=== PATIENT | female | born 1945 | race Caucasian/White ===

== ENCOUNTER → 2017-03-25 | Outpatient (CLI) | payer MEDICARE, OTHER ==
[~2017-03-25] MED LIST: ACET325T9 PO; ALPR1TAB2 PO; ASA/1TAB PO; CALC-159 PO; CARI350T PO; DIPH25CA58 PO; FLUO40CA9 PO; FURO-68 PO; LISI40TA PO; METH20TA PO; MULT-245 PO; OMEG-33 PO; POT1TABL2 PO; PSYL0.525 PO; SIMV40TA PO; VITA400C11 PO
--- NOTE | 2017-03-25 11:28 | KCIC ---
EXAM: Right shoulder, 3 views; chest, 2 views; right knee, 3 views. HISTORY: Pain status post fall. COMPARISON: None. FINDINGS: Right shoulder: Internal and external rotation and transscapular views of the right shoulder obtained. There is no fracture, dislocation or subluxation. There is slight capsular hypertrophy involving the acromioclavicular joint. There is a right upper lobe calcified granuloma. There is degenerative change involving the visualized cervical spine. Right knee: Frontal, lateral and oblique views of the right knee are obtained. There is no fracture, dislocation or subluxation. No joint effusion is seen. Chest: Frontal and lateral views of the chest are obtained. There is no infiltrate, effusion or pneumothorax. There is a calcified granuloma within the right mid thorax. There is suspected calcification of the mitral valve annulus. There are cholecystectomy clips. IMPRESSION: No acute osseous or pulmonary finding. Electronically signed by: Mercy Patel MD (03/25/2017 11:24 AM) [facility]-KCIC1
--- NOTE | 2017-03-25 11:44 | KCIC ---
EXAM: Dual energy x-ray absorptiometry (DEXA). HISTORY: Postmenopausal female presents for osteoporosis screening. COMPARISON: None. TECHNIQUE: Dual energy x-ray absorptiometry of the lumbar spine and right forearm was performed. Calculation of bone mineral density based on standard deviations above or below the expected young adult normal value (T-score) was completed. FINDINGS: The average bone mineral density in the 1st through 4th lumbar vertebrae is 1.018 g/cmxcm, corresponding with a T-score of -0.3. The average total bone mineral density in the right forearm is 0.516 g/cmxcm, corresponding with a T-score of -0.9. IMPRESSION: Normal bone mineral density. Note: Definitions established by the World Health Organization: 1. Normal: T-score is -1.0 or above. 2. Osteopenia: T-score is between -1.0 and -2.5 . 3. Osteoporosis: T-score is -2.5 or below. Electronically signed by: Mercy Patel MD (03/25/2017 11:41 AM) [facility]-KCIC1
--- NOTE | 2017-03-25 14:21 | RAD ---
DATE: 03/25/2017 EXAM: MAMMO AJ SCREENING BILATERAL HISTORY: Screening study. COMPARISON: 03/18/2016 This study was interpreted with the benefit of Computerized Aided Detection (CAD). The breast parenchyma is primarily fatty replaced. Breast parenchyma level density A. FINDINGS: Digital MLO and CC mammograms of both breasts were obtained. Additionally digital breast tomosynthesis (3D mammography) images of both breasts in the MLO and CC projections were performed. Comparison study is dated 03/18/2016. The breast parenchyma is predominantly fat replaced (breast density code A). No spiculated mass is seen. No malignant appearing calcification or area of architectural distortion is noted. Digital breast tomosynthesis images demonstrate no spiculated mass or malignant appearing calcification. Since the previous examination there has been no significant interval change. IMPRESSION: BI-RADS Category 1, negative. There is no mammographic evidence of malignancy. Routine yearly screening mammography is recommended for follow-up. BI-RADS CATEGORY: 1 NEGATIVE RECOMMENDED FOLLOW-UP: 12M 12 MONTH FOLLOW-UP PQRS compliance statement: Patient information was entered into a reminder system with a target due date March 25, 2018 for the next mammogram. Mammography is a sensitive method for finding small breast cancers, but it does not detect them all and is not a substitute for careful clinical examination. A negative mammogram does not negate a clinically suspicious finding and should not result in delay in biopsying a clinically suspicious abnormality. "Our facility is accredited by the [employer] Mammography Program."
== END | disposition home or self-care (01) ==
LOC: KCIC 10:02
PROVIDERS: ATTEND Internal Medicine
DX: M25.561 Pain in right knee (principal); M25.511 Pain in right shoulder; M81.0 Age-related osteoporosis without current pathological fracture; Z91.81 History of falling; N95.9 Unspecified menopausal and perimenopausal disorder
CPT/HCPCS: 71020; 73030; 73562; 77063; 77080; G0202; 77067

== ENCOUNTER → 2017-08-11 | Outpatient (CLI) | payer MEDICARE, OTHER ==
[2017-08-11 14:16] LABS: ADD MAN DIFF? NO
[2017-08-11 14:24] LABS: BASO % 0 % (0-3); EOS % 2 % (0-3); HEMATOCRIT 42.4 % (36.0-47.0); HEMOGLOBIN 13.9 g/dL (12.0-15.5); LYMPH # 2.6 x10^3/uL (1.0-4.8); LYMPH % 34 % (24-48); MEAN CORPUSCULAR HEMOGLOBIN 31 pg (25-35); MEAN CORPUSCULAR HGB CONC 33 g/dL (31-37); MEAN CORPUSCULAR VOLUME 93 fL (79-100); MONO % 9 % (0-9); NEUT % 54 % (31-73); PLATELET COUNT 189 x10^3/uL (140-400); RED BLOOD COUNT 4.55 x10^6/uL (3.50-5.40); RED CELL DISTRIBUTION WIDTH 13.4 % (11.5-14.5); WHITE BLOOD COUNT 7.8 x10^3/uL (4.0-11.0)
[2017-08-11 14:33] LABS: PARTIAL THROMBOPLASTIN TIME 30 SEC (24-38); PROTHROMBIN TIME PATIENT 12.9 SEC (11.7-14.0)
[2017-08-11 14:51] LABS: ALBUMIN 3.4 g/dL (3.4-5.0); ALBUMIN/GLOBULIN RATIO 0.9 (1.0-1.7); ALK PHOS 105 U/L (46-116); ALT (SGPT) 25 U/L (14-59); ANION GAP 11 (6-14); AST (SGOT) 27 U/L (15-37); BLOOD UREA NITROGEN 22 mg/dL (7-20); BUN/CREATININE RATIO 31 (6-20); CALCIUM 8.8 mg/dL (8.5-10.1); CARBON DIOXIDE 24 mmol/L (21-32); CHLORIDE 102 mmol/L (98-107); CREATININE 0.7 mg/dL (0.6-1.0); GFR 82.5; GLUCOSE 114 mg/dL (70-99); POTASSIUM 4.3 mmol/L (3.5-5.1); SODIUM 137 mmol/L (136-145); TOTAL BILIRUBIN 0.2 mg/dL (0.2-1.0); TOTAL PROTEIN 7.1 g/dL (6.4-8.2)
[2017-08-12 02:14] LABS: MRSA BY PCR Negative (Negative)
== END | disposition home or self-care (01) ==
LOC: SURGPAT 12:59
DX: Z01.818 Encounter for other preprocedural examination (principal); M54.16 Radiculopathy, lumbar region; M43.16 Spondylolisthesis, lumbar region
CPT/HCPCS: 36415; 80053; 85025; 85610; 85730; 87641; 93005

== ENCOUNTER → 2017-11-08 | Outpatient (CLI) | payer MEDICARE | END | disposition home or self-care (01) | LOC: RAD 13:21 | DX: M51.36 Other intervertebral disc degeneration, lumbar region (principal); Z98.1 Arthrodesis status | CPT/HCPCS: 72100 ==

== ENCOUNTER 2018-01-13 12:33 | Outpatient (CLI) | payer MEDICARE ==
[2018-01-13] MEDS ORDERED: LIDOCAINE WITH 8.4% SOD BICARB 3 ML DISP.SYRIN. (12:53)
[2018-01-13] MEDS ORDERED: LIDOCAINE WITH 8.4% SOD BICARB 3 ML DISP.SYRIN. INJ (13:00)
[2018-01-13 13:20] LABS: CREATININE 0.9 mg/dL (0.6-1.0); GFR 61.5
[2018-01-13 13:20] LABS: BLOOD UREA NITROGEN 25 mg/dL (7-20)
[2018-01-13] MEDS: IOHEXOL 300 MG/ML 10ML VIAL. IT (13:30)
== END 2018-01-13 15:25 | disposition home or self-care (01) ==
LOC: RAD 12:33
DX: M51.24 Other intervertebral disc displacement, thoracic region (principal); M48.04 Spinal stenosis, thoracic region
CPT/HCPCS: 36415; 72129; 72255; 82565; 84520; Q9967

== ENCOUNTER → 2018-04-04 | Outpatient (CLI) | payer MEDICARE ==
[2017-08-23 11:00] VITALS: BP 140/70
[~2018-04-04] MED LIST changes: +ASPI81TA50 PO; +CALC1TAB PO; +CETI10TA22 PO; +FLUO20CA16 PO; +FLUT9.9S NS; +FURO20TA3 PO; +HYDR-2766 PO; +LISI-130 PO; +LISI-334 PO; -LISI40TA PO; +METO-239 PO; +POTA8CAP PO; +PSYL0.5220 PO; -PSYL0.525 PO
--- NOTE | 2018-04-05 08:54 | RAD ---
DATE: 04/04/2018 EXAM: MAMMO AJ SCREENING BILATERAL HISTORY: Routine screening COMPARISON: 03/25/2017 This study was interpreted with the benefit of Computerized Aided Detection (CAD). The breast parenchyma is primarily fatty replaced. Breast parenchyma level density A. FINDINGS: 2-D and 3-D tomosynthesis imaging was performed in CC and MLO projections. No new or enlarging breast densities are seen. There is minimal benign type calcification. No suspicious microcalcifications have developed. IMPRESSION: Stable mammograms without evidence of malignancy. BI-RADS CATEGORY: 2 BENIGN FINDING(S) RECOMMENDED FOLLOW-UP: 12M 12 MONTH FOLLOW-UP PQRS compliance statement: Patient information was entered into a reminder system with a target due date for the next mammogram. Mammography is a sensitive method for finding small breast cancers, but it does not detect them all and is not a substitute for careful clinical examination. A negative mammogram does not negate a clinically suspicious finding and should not result in delay in biopsying a clinically suspicious abnormality. "Our facility is accredited by the [employer] Mammography Program."
== END | disposition home or self-care (01) ==
LOC: MAMMO 13:16
PROVIDERS: ATTEND Internal Medicine
DX: Z12.31 Encounter for screening mammogram for malignant neoplasm of breast (principal); I10 Essential (primary) hypertension; M19.90 Unspecified osteoarthritis, unspecified site; Z86.73 Personal history of transient ischemic attack (TIA), and cerebral infarction without residual deficits
CPT/HCPCS: 77063; 77067

== ENCOUNTER → 2019-02-08 | Day surgery (SDC) | payer MEDICARE ==
[~2019-02-08] MED LIST changes: -HYDR-2766 PO; +HYDR-2769 PO; +IV RINGERS,LACTATED 1000ML 1,000 ML IV SCH; +PROPOFOL 40 ML IV ONE
[2019-02-08 11:12] VITALS: BP 120/72
--- NOTE | 2019-02-08 12:34 | PREOP HP ---
DATE OF SERVICE: 02/08/2019 REQUESTING PHYSICIAN: Dr. Pham. PRIMARY CARE PHYSICIAN: Dr. Pham. REASON FOR PROCEDURE: Positive Cologuard and dysphagia. HISTORY OF PRESENT ILLNESS: This is a 73-year-old female who presents for colorectal cancer screening. She recently had a positive Cologuard. She also has dysphagia following a brain aneurysm and vocal cord paralysis. PAST MEDICAL HISTORY: 1. Stroke. 2. Brain aneurysm. 3. Vocal cord paralysis. 4. Ovarian cancer. 5. History of hyperplastic polyps in 2006. FAMILY MEDICAL HISTORY: Significant for colon cancer in her child and polyp in her brother. MEDICATIONS: MAR was reviewed. PAST SURGICAL HISTORY: Significant for: 1. Appendectomy. 2. Back surgery. 3. Gallbladder surgery. 4. Hysterectomy. 5. Bilateral hip replacement. 6. Tonsillectomy. 7. Brain aneurysm. REVIEW OF SYSTEMS: A 13-point review of systems was done. It is positive as per HPI and otherwise negative. PHYSICAL EXAMINATION: VITAL SIGNS: She is afebrile and vital signs are stable. GENERAL: She is a well-developed, well-nourished female, in no apparent distress. HEENT: Oropharynx clear. CARDIOVASCULAR: S1, S2. LUNGS: Clear. ABDOMEN: Active bowel sounds, soft, nontender, nondistended. EXTREMITIES: No edema. NEUROLOGIC: Awake, alert, oriented x 3. ASSESSMENT AND PLAN: 1. Positive Cologuard. We will proceed with a colonoscopy for further evaluation. The risks and benefits including bleeding, perforation, non-diagnosis and sedation were explained. She has agreed to proceed. 2. Dysphagia. We will proceed with an upper endoscopy for further evaluation. Thank you for allowing me to participate in the care of this patient. PERLA MANUEL MD DR: GIOVANI/xavier JOB#: [id number] / [id number]
--- NOTE | 2019-02-09 14:06 | PATHOLOGY ---
[facility] Accession Number: [id number] . 01 Material submitted: . PART A: small bowel - SMALL BOWEL BIOPSY PART B: stomach - GASTRIC ANTRUM BIOPSY PART C: esophagus - DISTAL ESOPHAGEAL BIOPSY. Modifiers: distal PART D: esophagus - MID ESOPHAGEAL BIOPSY. Modifiers: mid PART E: rectum - RECTAL POLYP BIOPSY . 01 Clinical history: . Dysphasia, positive cologuard screening colonoscopy. . 02 Diagnosis: A. Small bowel biopsies: - No significant pathologic abnormalities. . B. Gastric biopsies, antrum: - Consistent with mild reactive gastropathy. . C. Esophageal biopsies, distal esophagus: - Segments of hyperplastic squamous esophageal mucosa and superficial gastric foveolar epithelium, consistent with reflux esophagitis. . D. Esophageal biopsies, middle esophagus: - Segments of hyperplastic squamous esophageal mucosa consistent with reflux changes. . E. Colorectal biopsy, rectal polyp: - Tubular adenoma. (JPM:ana; 02/09/2019) QMS/02/09/2019 . 02 Comment: Sections of the small bowel biopsy reveal segments of duodenal and small intestine mucosa. Where best oriented, the mucosal villi show no sprue-like changes or significant inflammatory changes. . Sections of the gastric antral biopsy show congestion, focal mild foveolar hyperplasia, and slight chronic inflammation. An immunoperoxidase stain for Helicobacter is negative for Helicobacter organisms. The findings are consistent with a mild reactive gastropathy. . Sections of the distal esophageal biopsy reveal segments of hyperplastic squamous esophageal mucosa and superficial gastric foveolar epithelium consistent with reflux esophagitis. There is no evidence of Ridley's change, dysplasia, or malignancy. . Sections of the middle esophageal biopsy reveal segments of tangentially oriented hyperplastic squamous esophageal mucosa consistent with reflux changes. There is no evidence of Ridley's change, dysplasia, or malignancy. . Sections of the rectal biopsy reveal a diminutive tubular adenoma showing no high grade dysplasia or evidence of malignancy. (JPM:ana; 02/09/2019) . . Special stain performed: Immunoperoxidase stain for Helicobacter on B1. . 02 Electronically signed: . Robert Wang MD, Pathologist NPI- [id number] . 01 Gross description: . A. Received in formalin labeled "Amber, Isamar, small bowel BX" is a 0.6 x 0.5 x 0.2 cm aggregate of meier-brown mucosa fragments. The specimen is submitted in A1. . B. Received in formalin labeled "Amber, Isamar, BX gastric antrum" is a 0.5 x 0.5 x 0.2 cm aggregate of meier-brown mucosa fragments. The specimen is submitted in B1. . C. Received in formalin labeled "Amber, Isamar, distal esophageal BX" is a 0.6 x 0.5 x 0.1 cm aggregate of meier-brown mucosa fragments. The specimen is submitted in C1. . D. Received in formalin labeled "Amber, Isamar, mid esophageal BX" is a 0.8 x 0.5 x 0.1 cm aggregate of meier-brown mucosa fragments. The specimen is submitted in D1. . E. Received in formalin labeled "Amber, Isamar, rectal polyp BX" is a 0.5 x 0.4 x 0.2 cm fragment of meier-brown mucosa. The specimen is submitted in E1. ([facility]; 02/08/2019) SYC/SYC . 02 Pathologist provided ICD-10: K31.9, K21.0, D12.8, R13.10 . 02 CPT . 817482, 241710, 941477, 487719, 069926, [id number] Specimen Comment: A courtesy copy of this report has been sent to Specimen Comment: [phone], . Specimen Comment: Report sent to / DR NGUYEN Performed at: 01 [facility] [address], [place] [id number] MD Chino Mahan MD Phone: [phone] Performed at: 02 [facility] [address], [place] [id number] MD Robert Wang MD Phone: [phone]
== END ==
LOC: SURG 09:18 → EDSTATUS 10:30
PROVIDERS: ATTEND Internal Medicine Gastroenterology
DX: D12.8 Benign neoplasm of rectum (principal); K21.0 Gastro-esophageal reflux disease with esophagitis; K22.2 Esophageal obstruction; K57.30 Diverticulosis of large intestine without perforation or abscess without bleeding; K64.0 First degree hemorrhoids; Z80.0 Family history of malignant neoplasm of digestive organs; Z79.82 Long term (current) use of aspirin; Z86.73 Personal history of transient ischemic attack (TIA), and cerebral infarction without residual deficits; Z85.43 Personal history of malignant neoplasm of ovary; Z86.010 Personal history of colon polyps; Z90.49 Acquired absence of other specified parts of digestive tract; Z90.710 Acquired absence of both cervix and uterus; Z98.890 Other specified postprocedural states
CPT/HCPCS: 43239; 43450; 45380; 88305; 88342; J2704

== ENCOUNTER → 2019-05-24 | Outpatient (CLI) | payer MEDICARE ==
[2019-02-08 11:12] VITALS: BP 120/72
[~2019-05-24] MED LIST changes: -IV RINGERS,LACTATED 1000ML 1,000 ML IV SCH; -POTA8CAP PO; +POTA8CAP19 PO; -PROPOFOL 40 ML IV ONE
--- NOTE | 2019-05-24 10:49 | RAD ---
EXAM: Chest, 2 views. HISTORY: Bronchitis. Smoking history. COMPARISON: 03/25/2017 FINDINGS: 2 views of chest are obtained. There are coarse likely chronic interstitial markings throughout both lungs. There is a calcified renal within the right mid thorax. There is a moderate to large hiatal hernia with suspected left infrahilar compressive atelectasis. There is no pleural effusion or pneumothorax. IMPRESSION: 1. Coarse likely chronic interstitial markings. 2. Moderate to large hiatal hernia with suspected left infrahilar compressive atelectasis. Electronically signed by: Mercy Patel MD (05/24/2019 10:46 AM) [facility]
--- NOTE | 2019-05-25 08:33 | RAD ---
DATE: 05/24/2019 10:14 AM EXAM: MAMMO AJ SCREENING BILATERAL HISTORY: routine screening evaluation. COMPARISON: No mammographic imaging 04/04/2018, 1117, 03/18/2016 Bilateral CC and MLO views of the breasts were performed. Bilateral breast tomosynthesis was performed in CC and MLO projections. This study was interpreted with the benefit of Computerized Aided Detection (CAD). FINDINGS: Breast Density: SCATTERED The breast parenchyma shows scattered fibroglandular densities. Breast parenchyma level B Benign calcifications are present. The parenchymal pattern appears stable. No suspicious masses, microcalcifications or architectural distortion is present to suggest malignancy in either breast. The visualized axillae are unremarkable. IMPRESSION: No mammographic evidence of malignancy. BI-RADS CATEGORY: 2 BENIGN FINDING(S) RECOMMENDED FOLLOW-UP: 12M 12 MONTH FOLLOW-UP Annual screening mammography is recommended, unless clinically indicated sooner based on symptoms or change in physical exam. PQRS compliance statement: Patient information was entered into a reminder system with a target due date for the next mammogram. Mammography is a sensitive method for finding small breast cancers, but it does not detect them all and is not a substitute for careful clinical examination. A negative mammogram does not negate a clinically suspicious finding and should not result in delay in biopsying a clinically suspicious abnormality. "Our facility is accredited by the [employer] Mammography Program."
== END | disposition home or self-care (01) ==
LOC: MAMMO 10:14
PROVIDERS: ATTEND Internal Medicine
DX: Z12.31 Encounter for screening mammogram for malignant neoplasm of breast (principal); J40 Bronchitis, not specified as acute or chronic; K44.9 Diaphragmatic hernia without obstruction or gangrene; Z87.891 Personal history of nicotine dependence
CPT/HCPCS: 71046; 77063; 77067

== ENCOUNTER → 2019-10-30 | Outpatient (CLI) | payer MEDICARE ==
[2019-02-08 11:12] VITALS: BP 120/72
[~2019-10-30] MED LIST changes: -CETI10TA22 PO; +CETI10TA24 PO; +IOHEXOL 240 MG/ML 50ML VIAL. PO ONE; +IOHEXOL 300 MG/ML 100ML VIAL. IV ONE
--- NOTE | 2019-10-30 14:25 | RAD ---
CT abdomen and pelvis with contrast PQRS statement: CT scans at this facility use dose reduction including either automated exposure control, iterative reconstructions, and /or weight based radiation dosing via mA and kV modification when appropriate to reduce radiation dose to as low as reasonably achievable. Contrast: Oral contrast and 75 mL Omnipaque 300 intravenous contrast. HISTORY: Abdominal pain. Abdomen findings: Calcified granuloma right lung base. Coronary calcified plaque. Hiatal hernia the upper stomach. Mild dilation of the common bile duct typical after cholecystectomy diameter of 8 mm tapering distally. Mild fatty atrophy of the pancreas. 1.5 cm left adrenal indeterminate nodule. Kidneys, right adrenal gland, liver, spleen unremarkable. Left colonic diverticulosis. Moderate volume of stool. No obstruction or inflammation GI tract. Calcified likely aorta and iliac arteries. No abdominal fluid or adenopathy. There is a multiloculated fatty periumbilical abdominal wall hernia measuring 6 x 4 cm. No herniation of bowel. L5-S1 fusion with pedicle screws and rods. Lumbar scoliosis and changes of disc disease and arthritis with spinal canal and neural frontal stenoses. Appendix is absent. Pelvis findings: Hysterectomy. Streak artifact from hip arthroplasties limits visualization of the lower pelvic organs and soft tissues and surrounding bones. Bladder and rectum are unremarkable. No pelvic fluid or adenopathy evident. IMPRESSION: 1. No acute process. 2. Moderate volume of stool may indicate constipation. 3. Left colonic diverticulosis without diverticulitis. 4. Fatty periumbilical abdominal wall hernia. No herniation of bowel. 5. Other incidental findings as described above. Electronically signed by: Bashir Plummer MD (10/30/2019 2:22 PM) [id number]
== END | disposition home or self-care (01) ==
LOC: CT 12:25
PROVIDERS: ATTEND Family Medicine
DX: K44.9 Diaphragmatic hernia without obstruction or gangrene (principal); K86.89 Other specified diseases of pancreas; K57.30 Diverticulosis of large intestine without perforation or abscess without bleeding; J84.10 Pulmonary fibrosis, unspecified; I25.10 Atherosclerotic heart disease of native coronary artery without angina pectoris
CPT/HCPCS: 74177; Q9966; Q9967

== ENCOUNTER 2019-11-29 12:59 | Emergency (ER) | payer MEDICARE ==
[~2019-11-29] VITALS: Ht 152.4 cm; Wt 90.0 kg
[~2019-11-29 12:59] MED LIST changes: -IOHEXOL 240 MG/ML 50ML VIAL. PO ONE; -IOHEXOL 300 MG/ML 100ML VIAL. IV ONE
[2019-11-29] MEDS ORDERED: IV NORMAL SALINE 1000ML BAG 1,000 ML IV SCH (13:39)
--- NOTE | 2019-11-29 13:47 | PHYS DOC ---
Past Medical History Past Medical History: Cancer, Hypertension, Other Additional Past Medical Histor: BRAIN ANEURYSM, CA-UTERINE Past Surgical History: Hip Replacement, Other Additional Past Surgical Histo: L5 Smoking Status: Current Every Day Smoker Alcohol Use: None General Adult EDM: Chief Complaint: FEVER HPI: HPI: Patient is a 74 year old female with history of hypertension, brain aneurysm, uterine cancer who presents with complaining of fever. Patient states she had has had nonproductive cough, myalgia and not feeling good for couple days and since this morning had severe sore throat and fever of up to 103 and took Tylenol twice. Patient states she gets shortness of breath with exertion and denies chest pain, vomiting, diarrhea, urinary symptom, sick contact. Patient had temperature of 99.4 at arrival to ER with O2 sat of 93% at room air. Review of Systems: Review of Systems: Constitutional: Reports fever and chills Eyes: Denies change in visual acuity. [] HENT: Denies nasal congestion, reports sore throat. [] Respiratory: Reports cough and shortness of breath Cardiovascular: Denies chest pain or edema. [] GI: Denies abdominal pain, nausea, vomiting, bloody stools or diarrhea. [] : Denies dysuria. [] Musculoskeletal: Denies back pain or joint pain. [] Integument: Denies rash. [] Neurologic: Denies headache, focal weakness or sensory changes. [] Endocrine: Denies polyuria or polydipsia. [] Lymphatic: Denies swollen glands. [] Psychiatric: Denies depression or anxiety. [] Heart Score: Risk Factors: Risk Factors: DM, Current or recent (<one month) smoker, HTN, HLP, family history of CAD, obesity. Risk Scores: Score 0 - 3: 2.5% MACE over next 6 weeks - Discharge Home Score 4 - 6: 20.3% MACE over next 6 weeks - Admit for Clinical Observation Score 7 - 10: 72.7% MACE over next 6 weeks - Early Invasive Strategies Allergies: Allergies: Allergies Coded Allergies Type Severity Reaction Last Updated Verified Sulfa (Sulfonamide Antibiotics) Allergy Intermediate Rash 02/08/19 Yes latex Allergy Intermediate Rash 02/08/19 Yes gabapentin Adverse Reaction Intermediate Nausea and Vomiting 02/08/19 Yes phenytoin sodium Adverse Reaction Intermediate Nausea and Vomiting 02/08/19 Yes phenytoin sodium extended Adverse Reaction Intermediate Nausea and Vomiting 02/08/19 Yes Physical Exam: PE: Constitutional: Well developed, well nourished, mild distress, non-toxic appearance. [] HENT: Normocephalic, atraumatic, bilateral external ears normal, oropharynx moist, no oral exudates, nose normal. [] Eyes: PERRLA, EOMI, conjunctiva normal, no discharge. [] Neck: Normal range of motion, no tenderness, supple, no stridor. [] Cardiovascular:Heart rate regular rhythm, no murmur [] Lungs & Thorax: Bilateral breath sounds clear to auscultation [] Abdomen: Bowel sounds normal, soft, no tenderness, no masses, no pulsatile masses. [] Skin: Warm, dry, no erythema, no rash. [] Back: No tenderness, no CVA tenderness. [] Extremities: No tenderness, no cyanosis, no clubbing, ROM intact, lower extremity trace edema. [] Neurologic: Alert and oriented X 3, normal motor function, normal sensory function, no focal deficits noted. [] Psychologic: Affect normal, judgement normal, mood normal. [] Current Patient Data: Vital Signs: Vital Signs Date Time Temp Pulse Resp B/P (MAP) Pulse Ox O2 Delivery O2 Flow Rate FiO2 11/29/19 13:17 99.4 89 18 113/56 (75) 94 Room Air 99.4 EKG: EKG: [] Radiology/Procedures: Radiology/Procedures: [facility] [address] [place] [address] IMAGING REPORT Signed PATIENT: ALICJA HANNON ACCOUNT: [id number] : 1945 LOCATION: ER AGE: 74 SEX: F EXAM STATUS: REG ER ORD. PHYSICIAN: BRANDYN REHMAN MD REASON: Fever and cough PROCEDURE: PORTABLE CHEST 1V Single AP view of the chest. Comparison: 05/24/2019. Indication: Fever and cough Findings: The heart is not enlarged. There is no pneumothorax or effusion. No air space or interstitial disease. Impression: 1. No acute cardiopulmonary process. Electronically signed by: Bobby Mathur MD (11/29/2019 2:44 PM) [id number] DICTATED and SIGNED BY: BOBBY MATHUR MD DATE: 11/29/19 1444 Course & Med Decision Making: Course & Med Decision Making Pertinent Labs and Imaging studies reviewed. (See chart for details) Evaluation of patient inertial 74-year-old female patient with complaining of cough and sore throat and fever. Patient had O2 sat of 95 to 100% at room air temperature of 99.1. Patient had white count of 13,000 with unremarkable chest x-ray and negative strep and flu test. COVID-19 sample was sent to [facility] lab. Plan to discharge patient home with diagnosis of upper respiratory infection and prescription of Zithromax and inhaler and Tessalon and instruction to follow-up with her primary care physician. Plan to give 1 dose of Zithromax in the ER. I've spoken with the patient and/or caregivers. I've explained the patient's condition, diagnosis and treatment plan based on information available to me at this time. I've answered the patient's and/or caregivers questions and addressed any concerns. The patient and/or caregivers have a good understanding the patient's diagnosis, condition and treatment plan as can be expected at this point. Vital signs have been stabilized. The patient's condition is stable for discharge from the emergency department. The patient will pursue further outpatient evaluation with her primary care provider or other designated consulting physician as outlined in the discharge instructions. Patient and/or caregivers are agreeable to this plan of care and follow-up instructions have been explained in detail. The patient and/or caregivers have received these instructions in written format and expressed understanding of these discharge instructions. The patient and her caregivers are aware that if any significant change in condition or worsening of symptoms should prompt him to immediately return to this of the closest emergency department. If an emergent department is not readily available I would encourage him to call 911. Ayo Disclaimer: Ayo Disclaimer: This electronic medical record was generated, in whole or in part, using a voice recognition dictation system. Departure Departure Impression: Primary Impression: Upper respiratory infection Qualified Codes: J06.9 - Acute upper respiratory infection, unspecified Additional Impression: Suspected COVID-19 virus infection Disposition: HOME, SELF-CARE (At 1509) Condition: IMPROVED Referrals: CRISS NGUYEN MD (PCP) Patient Instructions: Fever, Adult, Upper Respiratory Infection, Adult Additional Instructions: Drink plenty of liquids Follow-up with your primary care physician in 3-5 days Return to ER if not getting better Continue to quarantine at home until get COVID-19 test results Thank you for visiting . We appreciate you trusting us with your care. If any additional problems come up don't hesitate to return to visit us. Please follow up with your primary care provider so they can plan additional care if needed and know about the problem that you had. If symptoms worsen come back to the Emergency Department. Any concerning symptoms that start such as chest pain, shortness of air, weakness or numbness on one side of the body, running high fevers or any other concerning symptoms return to the ER. Scripts Albuterol Sulfate (PROAIR HFA INHALER) 8.5 Gm Hfa.aer.ad 2 PUFF IH PRN Q4-6HRS PRN for wheezing for 21 Days, #1 INHALER 0 Refills Prov: BRANDYN REHMAN MD 11/29/19 Benzonatate (TESSALON PERLE) 100 Mg Capsule 1 CAP PO TID for cough, #21 CAP Prov: BRANDYN REHMAN MD 11/29/19 Azithromycin (ZITHROMAX) 250 Mg Tablet 250 MG PO as directed for ANTI-BIOTIC, #6 TAB 0 Refills Take 2 PO x 1 days Then take 1 PO q 24 hour for the next 4 days Prov: BRANDYN REHMAN MD 11/29/19 COVID-19 Assessment: COVID-19 Patient Risks: Age 65 or older: Yes Sign of co-morbidity: Yes Exp to person + for COVID: No Exp to PUI: No Travel from affected area: No Lower respiratory symptoms: Yes Fever: Yes PPE Use: Full PPE with N95 mask or PAPR: Yes Critical Care Time Critical care time was 50 minutes exclusive of procedures. BRANDYN REHMAN MD Nov 29, 2019 13:47
[2019-11-29 13:50] LABS: BASO % 0 % (0-3); EOS # 0.1 x10^3/uL (0.0-0.7); EOS % 0 % (0-3); HEMATOCRIT 41.9 % (36.0-47.0); HEMOGLOBIN 13.7 g/dL (12.0-15.5); LYMPH # 1.4 x10^3/uL (1.0-4.8); LYMPH % 11 % (24-48); MEAN CORPUSCULAR HEMOGLOBIN 29 pg (25-35); MEAN CORPUSCULAR HGB CONC 33 g/dL (31-37); MEAN CORPUSCULAR VOLUME 90 fL (79-100); MONO # 0.9 x10^3/uL (0.0-1.1); MONO % 7 % (0-9); NEUT # 10.9 x10^3/uL (1.8-7.7); NEUT % 82 % (31-73); PLATELET COUNT 178 x10^3/uL (140-400); RED BLOOD COUNT 4.66 x10^6/uL (3.50-5.40); RED CELL DISTRIBUTION WIDTH 13.6 % (11.5-14.5); WHITE BLOOD COUNT 13.3 x10^3/uL (4.0-11.0)
[2019-11-29 14:01] LABS: PROTHROMBIN TIME PATIENT 12.8 SEC (11.7-14.0)
[2019-11-29 14:08] LABS: CREATININE 0.9 mg/dL (0.6-1.0); GFR 61.2; POTASSIUM 4.5 mmol/L (3.5-5.1)
[2019-11-29 14:10] LABS: BILIRUBIN,URINE NEGATIVE (NEG); CLARITY,URINE CLEAR; COLOR,URINE YELLOW; NITRITE,URINE POSITIVE (NEG); PROTEIN,URINE NEGATIVE (NEG-TRACE); UROBILINOGEN,URINE 0.2 mg/dL (0.2 mg/dL)
[2019-11-29 14:11] LABS: INFLUENZA A PATIENT NEGATIVE (NEGATIVE); INFLUENZA B PATIENT NEGATIVE (NEGATIVE)
[2019-11-29 14:13] LABS: BACTERIA,URINE MANY /HPF (0-FEW); HYALINE CASTS, URINE FEW /HPF; SQUAMOUS EPITHELIAL CELL,UR FEW /LPF
[2019-11-29 14:14] LABS: ALBUMIN 3.2 g/dL (3.4-5.0); ALBUMIN/GLOBULIN RATIO 0.9 (1.0-1.7); MAGNESIUM 1.7 mg/dL (1.8-2.4); TOTAL BILIRUBIN 0.4 mg/dL (0.2-1.0); TOTAL PROTEIN 6.8 g/dL (6.4-8.2)
[2019-11-29 14:14] LABS: RBC,URINE 0 /HPF (0-2); WBC,URINE OCC /HPF (0-4)
--- NOTE | 2019-11-29 14:47 | RAD ---
Single AP view of the chest. Comparison: 05/24/2019. Indication: Fever and cough Findings: The heart is not enlarged. There is no pneumothorax or effusion. No air space or interstitial disease. Impression: 1. No acute cardiopulmonary process. Electronically signed by: Bobby Mathur MD (11/29/2019 2:44 PM) [id number]
[2019-11-29 15:00] VITALS: BP 101/71
[2019-11-29] MEDS ORDERED: cefTRIAXone IV Push 1 GM VIAL. IVP ONE (15:00)
[2019-11-29] MEDS ORDERED: ALBU2.5V8 IH (15:12)
[2019-11-29] MEDS ORDERED: BENZ100C PO (15:12)
[2019-11-29] MEDS ORDERED: AZIT250T PO (15:12)
--- NOTE | 2019-11-29 15:48 | EKG ---
[facility] [address] [place] [address] Test Date: 2019-11-29 Test Time: 13:59:31 Pat Name: ALICJA HANNON Department: Room: Gender: F Suture Gauger: : 1945 Requested By: BRANDYN REHMAN Order Number: [id number] Reading MD: Anders Green Measurements Intervals [place] Rate: 74 P: -90 NE: 132 QRS: 21 QRSD: 68 T: 43 QT: 364 QTc: 408 Interpretive Statements SINUS RHYTHM Electronically Signed On 11-30-2019 10:23:16 CDT by Anders Green
== END 2019-11-29 15:30 | disposition home or self-care (01) ==
LOC: ER 12:59
DX: Z20.828 Contact with and (suspected) exposure to other viral communicable diseases (principal); J06.9 Acute upper respiratory infection, unspecified; I10 Essential (primary) hypertension; F17.200 Nicotine dependence, unspecified, uncomplicated; Z88.2 Allergy status to sulfonamides; Z91.040 Latex allergy status; Z88.8 Allergy status to other drugs, medicaments and biological substances
CPT/HCPCS: 36415; 71045; 80053; 81001; 82550; 83605; 83735; 83880; 84484; 85025; 85610; 87040; 87070; 87086; 87186; 87804; 87880; 93005; 96374; 99285; J0696; J7030

== ENCOUNTER → 2020-05-29 | Outpatient (CLI) | payer MEDICARE ==
[~2020-05-29] MED LIST changes: +ALBU2.5V8 IH; +AZIT250T PO; +BENZ100C PO; -CETI10TA24 PO; +CETI10TA74 PO
--- NOTE | 2020-05-30 15:55 | RAD ---
DATE: 05/29/2020 3:30 PM EXAM: MAMMO AJ SCREENING BILATERAL HISTORY: Screening COMPARISON: 05/24/2019, 04/04/2018, 03/25/2017 and 03/18/2016 Bilateral CC and MLO views of the breasts were performed. Bilateral breast tomosynthesis was performed in CC and MLO projections. This study was interpreted with the benefit of Computerized Aided Detection (CAD). FINDINGS: Breast Density: FATTY The Breast Parenchyma is primarily fatty replaced. Breast parenchyma level density A. No suspicious masses, microcalcifications or architectural distortion is present to suggest malignancy in either breast. The visualized axillae are unremarkable. IMPRESSION: No mammographic evidence of malignancy. BI-RADS CATEGORY: 1 NEGATIVE RECOMMENDED FOLLOW-UP: 12M 12 MONTH FOLLOW-UP Annual screening mammography is recommended, unless clinically indicated sooner based on symptoms or change in physical exam. PQRS compliance statement: Patient information was entered into a reminder system with a target due date for the next mammogram. Mammography is a sensitive method for finding small breast cancers, but it does not detect them all and is not a substitute for careful clinical examination. A negative mammogram does not negate a clinically suspicious finding and should not result in delay in biopsying a clinically suspicious abnormality. "Our facility is accredited by the [employer] Mammography Program."
== END ==
LOC: MAMMO 14:56
PROVIDERS: ATTEND Internal Medicine
DX: Z12.31 Encounter for screening mammogram for malignant neoplasm of breast (principal)
CPT/HCPCS: 77063; 77067

== ENCOUNTER → 2021-01-13 | Outpatient (CLI) | payer MEDICARE ==
[~2021-01-13] MED LIST changes: -LISI-334 PO; +LISI20TA18 PO
--- NOTE | 2021-01-13 16:41 | RAD ---
XR SHOULDER_RIGHT 2+ VIEWS 01/13/2021 2:49 PM INDICATION: Right shoulder pain, recent fall COMPARISON: None available. TECHNIQUE: 3 views the right shoulder are provided. FINDINGS/ IMPRESSION: There is no acute fracture or dislocation. Joint spaces are maintained. Bone mineralization is within normal limits. Regional soft tissues are within normal limits. There is no soft tissue gas or osseou s erosion. No radiopaque foreign body. Calcified granuloma identified in the right upper lobe of the lungs. Electronically signed by: Ruth Reddy MD (01/13/2021 4:38 PM) [id number]
== END ==
LOC: RAD 14:24
PROVIDERS: ATTEND Psychiatry & Neurology Neurology with Special Qualifications in Child Neurology
DX: M25.511 Pain in right shoulder (principal)
CPT/HCPCS: 73030

== ENCOUNTER → 2021-11-02 | Outpatient (CLI) | payer MEDICARE ==
--- NOTE | 2021-11-02 15:15 | KCIC ---
EXAMINATION: CT HEAD/BRAIN WO CLINICAL HISTORY: Generalized convulsive epilepsy, frequent falls, hx. aneurysm w/surgery. TECHNIQUE: Serial axial images without IV contrast were obtained from the vertex to the foramen magnu m. CT Dose Reduction Employed: One or more of the following individualized dose reduction techniques wer e utilized for this examination: 1. Automated exposure control 2. Adjustment of the mA and/or kV ac cording to patient size 3. Use of iterative reconstruction technique. COMPARISON: None FINDINGS: Acute Change: No evidence of an acute infarct or other acute parenchymal process. Hemorrhage: No evidence of acute intracranial hemorrhage. Mass Lesion/Mass Effect: No evidence of intracranial mass or extraaxial fluid collection. No signific ant mass effect. Chronic Change: Right occipital craniotomy with underlying encephalomalacia in the right cerebellar h emisphere and postoperative changes in the right posterior fossa along the foramen magnum. Scattered patchy foci of hypoattenuation in the supratentorial white matter, nonspecific but likely represents mild microvascular ischemia. Atherosclerotic calcification of the anterior and posterior circulation. Parenchyma: Parenchyma otherwise within normal limits for age. Ventricles: Ventricles within normal limits for age. Paranasal Sinuses and Skull Base: Visualized paranasal sinuses clear. Visualized skull base and soft tissues otherwise unremarkable. IMPRESSION: No evidence of acute intracranial abnormality. Nonspecific supratentorial white matter changes as described, likely related to mild chronic microvas cular ischemia. Postoperative changes in the posterior fossa as described. Electronically signed by: Tone Joseph DO (11/02/2021 3:12 PM) [facility]
== END ==
LOC: KCIC CT 14:22
PROVIDERS: ATTEND Psychiatry & Neurology Neurology with Special Qualifications in Child Neurology
DX: G93.89 Other specified disorders of brain (principal); G40.309 Generalized idiopathic epilepsy and epileptic syndromes, not intractable, without status epilepticus; G47.10 Hypersomnia, unspecified; R29.6 Repeated falls
CPT/HCPCS: 70450